=== PATIENT | female | born 1950 | race Caucasian/White ===

== ENCOUNTER → 2016-06-29 | Outpatient (CLI) | payer BC ==
[~2016-06-29] MED LIST: ESCI10TA17 PO; NXM/40 PO; OMEG10007 PO; ZNTT/150 PO
== END | disposition home or self-care (01) ==
LOC: C.LABSPEC 17:35
PROVIDERS: ATTEND Obstetrics & Gynecology
DX: N95.2 Postmenopausal atrophic vaginitis (principal)

== ENCOUNTER → 2016-07-27 | Outpatient (CLI) | payer BC ==
--- NOTE | 2016-07-27 12:48 | MAMMOGRAPHY REPORT ---
BILATERAL DIGITAL SCREENING MAMMOGRAM WITH CAD: 07/27/2016 CLINICAL HISTORY: Routine screening. Patient has no complaints. TECHNIQUE: Current study was also evaluated with a Computer Aided Detection (CAD) system. Bilatera l CC and MLO views were obtained. COMPARISON: Comparison is made to exams dated: 07/27/2015 ultrasound, 07/27/2015 mammogram, 07/06/2015 mammogram, 06/19/2014 mammogram, 04/15/2013 mammogram, and 01/30/2012 mammogram - [facility]. BREAST COMPOSITION: There are scattered areas of fibroglandular density in both breasts. FINDINGS: No suspicious masses, calcifications, or areas of architectural distortion are noted in e ither breast. There has been no significant interval change compared to prior exams. Bilateral ivanna gn-appearing calcifications are not significantly changed. Benign intramammary lymph nodes are agai n seen within bilateral upper outer quadrants. IMPRESSION: ACR BI-RADS CATEGORY 2: BENIGN There is no mammographic evidence of malignancy. A 1 year screening mammogram is recommended. The p atient will receive written notification of the results. Approximately 10% of breast cancers are not detected with mammography. A negative mammographic repor t should not delay biopsy if a clinically suggestive mass is present. Jailyn Marrufo M.D. /:07/27/2016 12:25:27 Casing In Line Setter: Nerissa MILLER)(Avinash), [facility] letter sent: Normal 1/2 BI-RADS Code: ACR BI-RADS Category 2: Benign
== END | disposition home or self-care (01) ==
LOC: C.MAMM 10:03
PROVIDERS: ATTEND Obstetrics & Gynecology
DX: Z12.31 Encounter for screening mammogram for malignant neoplasm of breast (principal)

== ENCOUNTER → 2016-10-05 | Outpatient (CLI) | payer BC | END | disposition home or self-care (01) | LOC: C.LABSPEC 11:17 | PROVIDERS: ATTEND Nurse Practitioner Family | DX: J02.9 Acute pharyngitis, unspecified (principal) ==

== ENCOUNTER → 2016-11-01 | Outpatient (CLI) | payer BC ==
--- NOTE | 2016-11-01 12:43 | DIAGNOSTIC IMAGING REPORT ---
MRI OF THE LEFT ANKLE/HINDFOOT WITHOUT CONTRAST CLINICAL HISTORY: Persistent left ankle/hindfoot pain. Metallic foreign body removal 2 months ago. COMPARISON STUDY: No previous studies for comparison. TECHNIQUE: Utilizing a 1.5 [place] magnet, multiplanar, multi echo imaging of the left hind foot and ankle was performed without intravenous contrast. FINDINGS: Talar dome is intact. Alignment of the left ankle is anatomic. There is no marrow edema or marrow replacement within the left calcaneus. There is a 9 mm focus of increased T2 signal within the posterior aspect of the talus which may be degenerative. The Achilles tendon is normal. However, there is moderate edema within the fat pad anterior to the mid to distal Achilles tendon. The flexor, peroneal and extensor tendons are intact. There is thickening and increased signal within the lateral aspect of the plantar fascia which suggest plantar fasciitis. There is minimal adjacent edema. Anterior talofibular ligament appears intact. The posterior and anterior tibiofibular ligaments are likely intact. IMPRESSION: 1. Moderate edema within Kager's pad which may reflect Achilles paratenonitis. Intact Achilles tendon. 2. Findings suggestive of mild plantar fasciitis. 3. Intact flexor, peroneal and extensor tendons. 4. Minimal signal abnormality within the posterior talus which may be degenerative. 4. Normal marrow signal within the calcaneus. Electronically signed by: Elia Marmolejo M.D. 11/01/2016 12:42 PM Dictated Date/Time: 11/01/2016 12:23 PM
== END | disposition home or self-care (01) ==
LOC: C.MRI 11:19
PROVIDERS: ATTEND Podiatrist Foot & Ankle Surgery
DX: M77.52 Other enthesopathy of left foot and ankle (principal); M66.862 Spontaneous rupture of other tendons, left lower leg; M66.861 Spontaneous rupture of other tendons, right lower leg; M65.862 Other synovitis and tenosynovitis, left lower leg; R60.0 Localized edema

== ENCOUNTER → 2016-12-04 | Outpatient (CLI) | payer BC ==
[2016-12-04 12:16] LABS: BASO % 0.3 %; BASO ABS # 0.02 K/uL (0-0.2); COMPLETE YES; EOS % 9.7 %; HEMATOCRIT 38.9 % (37-47); IG% 0.3 %; LYMPH % 27.6 %; LYMPH ABS # 2.07 K/uL (1.2-3.4); MEAN CELL VOLUME 88.8 fL (80-100); MEAN CORPUSCULAR HEMOGLOBIN 29.2 pg (25-34); MEAN CORPUSCULAR HGB CONC 32.9 g/dl (32-36); MEAN PLATELET VOLUME 9.6 fL (7.4-10.4); MONO % 5.9 %; NEUT % 56.2 %; PLATELET COUNT 237 K/uL (130-400); RED BLOOD COUNT 4.38 M/uL (4.2-5.4)
[2016-12-04 12:27] LABS: ESTIMATED AVERAGE GLUCOSE 120 mg/dl; HA1C FLAG Normal (Normal)
[2016-12-04 12:49] LABS: ALT/SGPT 20 U/L (12-78); BLOOD UREA NITROGEN 22 mg/dl (7-18); CALCIUM 9.3 mg/dl (8.5-10.1); CARBON DIOXIDE 29 mmol/L (21-32); CHLORIDE 106 mmol/L (98-107); CHOLESTEROL 169 mg/dl (0-200); GLUCOSE 88 mg/dl (70-99); POTASSIUM 4.2 mmol/L (3.5-5.1); SODIUM 141 mmol/L (136-145)
[2016-12-04 12:52] LABS: ALB/GLOB RATIO 0.9 (0.9-2); ALKALINE PHOSPHATASE 111 U/L (45-117); AST/SGOT 20 U/L (15-37); HDL CHOLESTEROL 57 mg/dl; LDL CHOLESTEROL CALCULATED 93 mg/dl; TRIGLYCERIDES 93 mg/dl (0-150); VERY LOW DENSITY LIPOPROT CALC 19 mg/dl
== END | disposition home or self-care (01) ==
LOC: C.LAB1850 11:20
PROVIDERS: ATTEND Nurse Practitioner Family
DX: Z87.09 Personal history of other diseases of the respiratory system (principal); Z11.59 Encounter for screening for other viral diseases; K21.9 Gastro-esophageal reflux disease without esophagitis; E78.5 Hyperlipidemia, unspecified; R73.9 Hyperglycemia, unspecified

== ENCOUNTER → 2017-01-11 | Outpatient (CLI) | payer BC | END | disposition home or self-care (01) | LOC: C.LABBFT 11:24 | PROVIDERS: ATTEND Nurse Practitioner Family | DX: E55.9 Vitamin D deficiency, unspecified (principal) ==

== ENCOUNTER → 2017-04-26 | Outpatient (CLI) | payer BC ==
--- NOTE | 2017-04-26 15:32 | DIAGNOSTIC IMAGING REPORT ---
CHEST 2 VIEWS ROUTINE CLINICAL HISTORY: COUGH COMPARISON STUDY: 04/26/2016 FINDINGS: The heart is normal in size. There is no failure. There is no focal pulmonary consolidation. There are no pleural effusions. As a air-containing retrocardiac opacity consistent with a hiatal hernia.[ IMPRESSION: Hiatal hernia. No active disease in the chest. Electronically signed by: Paul Chu M.D. 04/26/2017 3:31 PM Dictated Date/Time: 04/26/2017 3:30 PM
== END | disposition home or self-care (01) ==
LOC: C.RAD1850 15:22
PROVIDERS: ATTEND Nurse Practitioner Family
DX: R05 Cough (principal); K44.9 Diaphragmatic hernia without obstruction or gangrene

== ENCOUNTER → 2017-08-03 | Outpatient (CLI) | payer BC ==
[~2017-08-03] MED LIST changes: +RANI150T85 PO; -ZNTT/150 PO
[2017-08-03 11:04] LABS: BASO % 0.3 %; BASO ABS # 0.02 K/uL (0-0.2); EOS % 5.1 %; EOS ABS # 0.37 K/uL (0-0.5); HEMATOCRIT 39.4 % (37-47); HEMOGLOBIN 13.3 g/dL (12.0-16.0); IG# 0.02 K/uL (0.00-0.02); LYMPH % 24.9 %; LYMPH ABS # 1.82 K/uL (1.2-3.4); MEAN CELL VOLUME 88.7 fL (80-100); MEAN CORPUSCULAR HGB CONC 33.8 g/dl (32-36); MEAN PLATELET VOLUME 9.4 fL (7.4-10.4); MONO ABS # 0.44 K/uL (0.11-0.59); NEUT % 63.4 %; NEUT ABS # 4.64 K/uL (1.4-6.5); PLATELET COUNT 245 K/uL (130-400); RED CELL DISTRIBUTION WIDTH CV 13.3 % (11.5-14.5); RED CELL DISTRIBUTION WIDTH SD 43.4 fL (36.4-46.3); WHITE BLOOD COUNT 7.31 K/uL (4.8-10.8)
[2017-08-03 11:30] LABS: HEMOGLOBIN A1C 5.8 % (4.5-5.6)
[2017-08-03 11:37] LABS: ALBUMIN 3.8 gm/dl (3.4-5.0); BLOOD UREA NITROGEN 19 mg/dl (7-18); CALCIUM 9.9 mg/dl (8.5-10.1); CARBON DIOXIDE 29 mmol/L (21-32); CREATININE 0.94 mg/dl (0.60-1.20); GLUCOSE 97 mg/dl (70-99); POTASSIUM 4.1 mmol/L (3.5-5.1); SODIUM 137 mmol/L (136-145)
[2017-08-03 11:49] LABS: ALKALINE PHOSPHATASE 118 U/L (45-117); ALT/SGPT 21 U/L (12-78); AST/SGOT 22 U/L (15-37); CHOLESTEROL 167 mg/dl (0-200); LDL CHOLESTEROL CALCULATED 89 mg/dl; TOTAL PROTEIN 7.9 gm/dl (6.4-8.2)
== END | disposition home or self-care (01) ==
LOC: C.LAB1850 10:04
PROVIDERS: ATTEND Nurse Practitioner Family
DX: K21.9 Gastro-esophageal reflux disease without esophagitis (principal); E78.5 Hyperlipidemia, unspecified; R73.9 Hyperglycemia, unspecified; E55.9 Vitamin D deficiency, unspecified

== ENCOUNTER → 2017-08-29 | Outpatient (CLI) | payer BC ==
--- NOTE | 2017-08-29 15:29 | MAMMOGRAPHY REPORT ---
BILATERAL DIGITAL SCREENING MAMMOGRAM TOMOSYNTHESIS WITH CAD: 08/29/2017 CLINICAL HISTORY: Routine screening. Patient has no complaints. TECHNIQUE: Breast tomosynthesis in addition to standard 2D mammography was performed. Current study was also evaluated with a Computer Aided Detection (CAD) system. COMPARISON: Comparison is made to exams dated: 07/27/2016 mammogram, 07/27/2015 mammogram, 07/06/2015 ma mmogram, 06/19/2014 mammogram, 04/15/2013 mammogram, and 01/30/2012 mammogram - [facility] enter. BREAST COMPOSITION: There are scattered areas of fibroglandular density in both breasts. FINDINGS: There are multiple bilateral circumscribed subcentimeter masses in the breasts, which is a typically benign mammographic pattern. No spiculated or irregular mass, focal area of distortion, ne w suspicious calcifications or developing asymmetry is seen bilaterally. IMPRESSION: ACR BI-RADS CATEGORY 1: NEGATIVE There is no mammographic evidence of malignancy. A 1 year screening mammogram is recommended. The pa tient will receive written notification of the results. Approximately 10% of breast cancers are not detected with mammography. A negative mammographic report should not delay biopsy if a clinically suggestive mass is present. Carlita Esposito M.D. ay/:08/29/2017 11:13:10 Construction Site Manager: Gege HARRIS(Yousuf)(M), [facility] letter sent: Normal 1/2 BI-RADS Code: ACR BI-RADS Category 1: Negative
== END | disposition home or self-care (01) ==
LOC: C.MAMM 09:35
PROVIDERS: ATTEND Obstetrics & Gynecology
DX: Z12.31 Encounter for screening mammogram for malignant neoplasm of breast (principal)